=== PATIENT | female | born 1945 | race Caucasian/White ===

== ENCOUNTER 2022-09-04 09:56 | Outpatient (CLI) | payer MEDICARE, SELFPAY ==
--- NOTE | ~2022-09-04 | US_ITS ---
Renal-Bladder ultrasound Clinical History: Chronic cystitis Technique: Real-time sonographic imaging of the kidneys and urinary bladder was performed. Findings: The right kidney measures 11.4 cm in length and the left kidney measures 10.7 cm. There is no hydronephrosis. 6 mm nonobstructing left renal stone noted. Renal cortical echogenicity is within normal limits. No renal mass lesion is identified. The urinary bladder is moderately distended at the time of this exam. No intraluminal echoes are iden tified. No abnormal wall thickening is seen. 3.5 cm probable nabothian cyst noted. Impression: No hydronephrosis. 6 mm nonobstructing left renal stone. Reviewed, dictated and finalized at location . [facility] [employer] Impression: No hydronephrosis. 6 mm nonobstructing left renal stone.
== END 2022-09-04 09:57 | disposition home or self-care (01) ==
LOC: ANHIMG 10:04
PROVIDERS: PCP Nurse Practitioner Family; Visit Provider Nurse Practitioner Family
DX: N30.20 Other chronic cystitis without hematuria (principal); N20.0 Calculus of kidney
CPT/HCPCS: 76770